=== PATIENT | male | born 1980 | race Two or more races ===

== ENCOUNTER 2020-12-25 18:03 | Emergency (ER) | payer SELFPAY ==
[~2020-12-25] VITALS: Ht 170.2 cm; Wt 77.4 kg
[~2020-12-25 18:03] MED LIST: EFFE150C2 PO; MINI2CAP PO; TRAZ1TAB6 PO; atarax PO
[2020-12-25 18:28] VITALS: BP 152/96
[2020-12-27] MEDS ORDERED: APAP325T4 PO (14:27)
[2020-12-27] MEDS ORDERED: WELLTAB40 PO (14:27)
[2020-12-27] MEDS ORDERED: HYDR-3713 PO (18:44)
[2020-12-27] MEDS ORDERED: BACT800T5 PO (18:44)
== END 2020-12-25 22:30 | disposition left against medical advice (07) ==
LOC: MERGE 18:03 → M ED 18:03
DX: Z53.21 Procedure and treatment not carried out due to patient leaving prior to being seen by health care provider (principal)

== ENCOUNTER → 2020-12-27 | Outpatient (CLI) | payer OTHER ==
--- NOTE | 2020-12-27 12:13 | REP ---
INDICATION: RT SCROTAL PAIN ? TORSION. COMPARISON: None. TECHNIQUE: High-resolution bilateral scrotal sonography with Doppler. FINDINGS: The right testicular parenchyma is heterogeneous. There is absence of visible Doppler flow in the right testis. The findings are consistent with acute torsion of the right testis. Left testicular Doppler flow is preserved. Resistive index is 0.43 on the left. No intratesticular mass lesion is seen on either side. Left testicular dimensions are 4.6 x 2.2 x 2.9 cm. Right testis measures 4.8 x 2.8 x 4.1 cm. There is a 0.4 cm cyst in the head of the epididymis on the left. Study is otherwise unremarkable. IMPRESSION: Findings consistent with acute torsion right testis. The right testis is avascular. It's parenchyma is heterogeneous. Findings: Torsion right testicle. The critical information above was relayed directly by me by telephone to Agnieszka Curtis on 12/27/2020 at 12:09 pm with readback verification. <Electronically signed by Ab Thakur > 12/27/20 1219
== END ==
LOC: M RAD 11:35
PROVIDERS: ATTEND Physician Assistant Medical
DX: N50.82 Scrotal pain (principal)